=== PATIENT | female | born 1985 | race Caucasian/White ===

== ENCOUNTER 2017-12-23 13:35 | Emergency (ER) | payer OTHER ==
[2017-12-23 13:40] VITALS: BP 102/65; PULSE 104; TEMP 97; BMI 22.1
--- NOTE | 2017-12-23 15:03 | PDOC ---
History of Present Illness - General Chief Complaint: Respiratory Stated Complaint: HEADACHES, FEVER, VOMTING Time Seen by Provider: 12/23/17 14:15 History Source: Patient Exam Limitations: No Limitations - History of Present Illness Initial Comments: 12/23/17 14:59 Patient is a [32-year-old female, no significant medical history, currently on no medication presents with generalized body aches, fever, and generalized just not feeling well since December 16. Her son was diagnosed with influenza A on December 11. Patient has been taking DayQuil every day since body aches started. Patient was requesting Tamiflu however symptoms have been for 2 weeks. Patient denies any cough, no shortness of breath, no chest pain. Vomited once after taking DayQuil last 2 days ago. Past Medical History: [Denies]. Allergies: No known allergies Medications: [DayQuil when necessary] Family History: Non-contributory Social History: Denies smoking, alcohol use, or IVDU Vital signs on arrival are [notable for pulse of 104] Review of Systems GENERAL/CONSTITUTIONAL: [No fever or chills. No weakness. No weight change.] HEAD, EYES, EARS, NOSE AND THROAT: [No change in vision. No ear pain or discharge. No sore throat. ] CARDIOVASCULAR: [No chest pain or shortness of breath.] RESPIRATORY: [No cough, wheezing, or hemoptysis.] GASTROINTESTINAL: [No nausea, vomiting, diarrhea or constipation. No rectal bleeding.] GENITOURINARY: [No dysuria, frequency, or change in urination.] MUSCULOSKELETAL: [No joint or muscle swelling or pain. No neck or back pain.] SKIN : [No rash or easy bruising.] NEUROLOGIC: [No headache, vertigo, loss of consciousness, or loss of sensation.] ENDOCRINE: [No increased thirst. No abnormal weight change.] HEMATOLOGIC/LYMPHATIC: [No anemia, easy bleeding, or history of blood clots.] ALLERGIC/IMMUNOLOGIC: [No hives or skin allergy. No latex allergy.] Physical Exam: GENERAL: [The patient is awake, alert, and fully oriented, in no acute distress. ] EYES: [Pupils equal, round and reactive to light, extraocular movements intact, sclera anicteric, conjunctiva clear.] ENT: [Ears normal, nares patent, oropharynx clear without exudates. Moist mucous membranes. No uvula deviation] NECK: [Normal range of motion, supple without lymphadenopathy, JVD, or masses.] LUNGS: [Breath sounds equal, clear to auscultation bilaterally. No wheezes, and no crackles.] HEART: [Regular rate and rhythm, normal S1 and S2 without murmur, rub or gallop. ] ABDOMEN: [Soft, nontender, normoactive bowel sounds. No guarding, no rebound. No masses. No bruising or abrasions] RECTAL : [Guaiac negative, normal rectal tone.] MUSCULOSKELETAL: [Normal range of motion, no edema. No clubbing or cyanosis. No cords, erythema, or tenderness. No CVA Tenderness with fist.] NEUROLOGICAL: [Cranial nerves II through XII grossly intact. Normal speech, normal gait.] SKIN: [Warm, Dry, normal turgor, no rashes or lesions noted.] Past History - Past Medical History Allergies/Adverse Reactions: Allergies Allergy/AdvReac Type Severity Reaction Status Date / Time aspirin Allergy Verified 12/23/17 13:40 Home Medications: Ambulatory Orders NK [No Known Home Medication] 12/23/17 Asthma: Yes COPD: No GI Disorders: Yes (gastritis) - Suicide/Smoking/Psychosocial Hx Smoking History: Never smoked *Physical Exam - Vital Signs Last Vital Signs Temp Pulse Resp BP Pulse Ox 97 F L 104 H 20 102/65 99 12/23/17 13:38 12/23/17 13:38 12/23/17 13:38 12/23/17 13:38 12/23/17 13:38 Medical Decision Making - Medical Decision Making 12/23/17 15:03 A/P: Patient presents emergency department because shipping she still has the flu, was exposed from her son. Is requesting Tamiflu. On physical examination patient appears well is ambulatory, no headache, no fever, no chest pain or shortness of breath lungs are clear. Patient is no acute distress. I have told patient that her heart rate is mildly elevated she needs to increase her fluid intake. Pulse rate rechecked and 80 when resting. I have explained to her that she is out of the window for treatment with Tamiflu, may take Tylenol as needed for fever otherwise no DayQuil patient with no cough or cold-like symptoms. *DC/Admit/Observation/Transfer Diagnosis at time of Disposition: Influenza-like illness - Discharge Dispostion Disposition: HOME Condition at time of disposition: Stable Admit: No - Referrals Referrals: Les Lopez MD [Primary Care Provider] - - Patient Instructions Printed Discharge Instructions: Influenza (Alternative Therapy) Additional Instructions: aumenta tu ingesta de lquidos Asegrese de beber Gatorade, Pedialyte. Por favor, asegrese de comprar un termmetro para verificar clarke temperatura regularmente si siente escalofros. Si el bar tayler a tayelr solo diana Tylenol. No tome DayQuil si no tiene sntomas de las vas respiratorias superiores. increase your fluid intake. Make sure to drink Gatorade, Pedialyte. Please make sure to purchase a thermometer check her temperature regularly if you feel chills. If the bar one-on-one only then take Tylenol. Do not take DayQuil if you have no upper respiratory symptoms. - Post Discharge Activity Forms/Work/School Notes: Back to Work
== END 2017-12-23 15:10 | disposition home or self-care (01) ==
LOC: JERFT 13:35
DX: J11.1 Influenza due to unidentified influenza virus with other respiratory manifestations (principal)
CPT/HCPCS: 99281-25

== ENCOUNTER 2019-11-16 11:04 | Emergency (ER) | payer OTHER ==
[2019-11-16 11:12] VITALS: BP 102/68; PULSE 97; TEMP 98; BMI 21.2
--- NOTE | 2019-11-16 12:17 | PDOC ---
History of Present Illness - General Chief Complaint: Cold Symptoms Stated Complaint: FLU LIKE SYMPTOMS Time Seen by Provider: 11/16/19 11:15 - History of Present Illness Initial Comments: 11/16/19 12:15 34-year-old female without comorbidities presents with flulike symptoms x1 day positive flu contacts at home Past History - Past Medical History Allergies/Adverse Reactions: Allergies Allergy/AdvReac Type Severity Reaction Status Date / Time aspirin Allergy Verified 12/23/17 13:40 Home Medications: Ambulatory Orders Oseltamivir Phosphate [Tamiflu] 75 mg PO BID #10 capsule 11/16/19 Asthma: Yes COPD: No GI Disorders: Yes (gastritis) - Immunization History Immunization Up to Date: No - Psycho Social/Smoking Cessation Hx Smoking History: Never smoked Have you smoked in the past 12 months: No Information on smoking cessation initiated: No Hx Alcohol Use: No Drug/Substance Use Hx: No Review of Systems - Review of Systems Constitutional: Yes: Fever HEENTM: Yes: Nose Congestion Respiratory: Yes: Cough *Physical Exam - Vital Signs Last Vital Signs Temp Pulse Resp BP Pulse Ox 98.0 F 97 H 18 102/68 99 11/16/19 11:08 11/16/19 11:08 11/16/19 11:08 11/16/19 11:08 11/16/19 11:08 - Physical Exam 11/16/19 12:16 GENERAL: The patient is awake, alert, and fully oriented, in no acute distress. HEAD: Normal with no signs of trauma. EYES: sclera anicteric, conjunctiva clear. ENT: Ears normal tympanic membranes normal oropharynx clear uvula midline NECK: Normal range of motion LUNGS: Breath sounds equal, clear to auscultation bilaterally. No wheezes, and no crackles. HEART: S1 and S2 without murmur, rub or gallop. ABDOMEN: Soft, nontender, normoactive bowel sounds. No guarding, no rebound. No masses. EXTREMITIES: Normal range of motion, no edema. No clubbing or cyanosis. No cords, erythema, or tenderness. NEUROLOGICAL: Cranial nerves II through XII grossly intact. Normal speech, normal gait. PSYCH: Normal mood, normal affect. SKIN: Warm, Dry, normal turgor, no rashes or lesions noted. Medical Decision Making - Medical Decision Making 11/16/19 12:16 Tamiflu for influenza supportive care with Tylenol and Motrin Discharge - Discharge Information Problems reviewed: Yes Clinical Impression/Diagnosis: Influenza Condition: Stable Disposition: HOME - Admission No - Additional Discharge Information Prescriptions: Oseltamivir Phosphate [Tamiflu] 75 mg PO BID #10 capsule - Follow up/Referral Referrals: Esvin Cohen MD [Staff Physician] - - Patient Discharge Instructions Additional Instructions: Tylenol Motrin for fevers. Please take Tamiflu as directed to shorten the course of the flu return to the emergency room for worsening symptoms and without fail follow-up with internal medicine in 2 to 3 days for further evaluation and treatment options. - Post Discharge Activity
== END 2019-11-16 12:31 | disposition home or self-care (01) ==
LOC: JERFT 11:04
DX: J11.1 Influenza due to unidentified influenza virus with other respiratory manifestations (principal); Z88.8 Allergy status to other drugs, medicaments and biological substances; J45.909 Unspecified asthma, uncomplicated; K29.70 Gastritis, unspecified, without bleeding
CPT/HCPCS: 87804; 99282-25

== ENCOUNTER → 2021-12-25 | Emergency (ER) | payer OTHER ==
[2021-12-25 12:30] VITALS: BP 136/94; PULSE 120; TEMP 97.8; BMI 20.8
== END ==
LOC: JERFT 12:18
DX: R51.9 Headache, unspecified (principal); F41.9 Anxiety disorder, unspecified
CPT/HCPCS: 99281-25